=== PATIENT | male | born 1960 | race Caucasian/White ===

== ENCOUNTER 2018-12-18 08:51 | Inpatient (IN) | payer OTHER ==
[2018-12-18] VITALS (14 sets, daily range): BP systolic 120–135; BP diastolic 70–90
[~2018-12-18] VITALS: Ht 172.7 cm; Wt 80.0 kg
[2018-12-18 09:11] LABS: ABSOLUTE BASOPHILS 0.1 thou/uL (0.0-0.2); ABSOLUTE EOSINOPHILS 0.2 thou/uL (0.0-0.7); ABSOLUTE LYMPHOCYTES 2.8 thou/uL (0.8-5.3); ABSOLUTE MONOCYTES 0.6 thou/uL (0.0-1.2); ABSOLUTE NEUTROPHILS 3.6 thou/uL (1.6-8.1); BASOPHILS 0.9 %; EOSINOPHILS 2.6 %; HEMATOCRIT 46.4 % (42.0-52.0); HEMOGLOBIN 15.9 gm/dL (14.0-18.0); LYMPHOCYTES 38.3 %; MCH 31.4 pg (26.0-34.0); MCHC 34.2 g/dL (28.0-37.0); MCV 91.7 fL (80.0-100.0); MPV 8.6 fl. (7.2-11.1); NUCLEATED RBCS 0 /100WBC; PLATELET COUNT* 199 thou/uL (150-400); POLYS 50.2 %; RBC 5.06 mil/uL (4.50-6.00); RDW-CV 13.2 % (10.5-14.5); WBC 7.2 thou/uL (4.0-11.0)
[2018-12-18 09:22] LABS: ANION GAP 12 mmol/L (7-16); APTT 24.5 Seconds (25.0-31.3); BUN 18 mg/dL (7-18); CALCIUM 8.8 mg/dL (8.5-10.1); CHLORIDE 102 mmol/L (98-107); CO2 21 mmol/L (21-32); CREATININE 1.1 mg/dL (0.6-1.3); GLUCOSE 354 mg/dL (70-99); POTASSIUM 3.9 mmol/L (3.5-5.1); PROTIME 10.6 Seconds (9.20-11.50); SODIUM 135 mmol/L (136-145)
[2018-12-18 09:31] LABS: ALBUMIN 3.5 g/dL (3.4-5.0); ALKALINE PHOSPHATASE 66 U/L (46-116); CHOLESTEROL 232 mg/dL (<200); HDL CHOLESTEROL 48 mg/dL (>40); LDL CHOLESTEROL 149 mg/dL (<100); MAGNESIUM 1.7 mg/dL (1.8-2.4); SERUM ASSESSMENT Clear; SGOT 25 U/L (15-37); SGPT 36 U/L (30-65); TC:HDL 4.8 Ratio (Not establshd); TOTAL BILIRUBIN 0.7 mg/dL (<0.1-1.0); TOTAL PROTEIN 6.4 g/dL (6.4-8.2); TRIGLYCERIDE 179 mg/dL (<150); TROPONIN-I LEVEL 0.07 ng/mL (<0.06); VLDL 36 mg/dL (<40)
--- NOTE | 2018-12-18 14:13 | 2DMMODE ---
[place] [address] 2 D/M-MODE ECHOCARDIOGRAM Name: SASCHA GANN Room: [address] IN [facility]#: [id number] Admission: 12/18/18 Attend Phys: Alex Barrios Discharge: Date of : 56 Date of Service: 12/18/18 1413 Report #: [id number] THIS REPORT FOR: //name// APPROVED REPORT Study performed: 12/18/2018 13:19:26 EXAM: Comprehensive 2D, Doppler, and color-flow Echocardiogram Patient Location: In-Patient Room #: 006 Status: routine BSA: 1.94 HR: 70 bpm BP: 135/90 mmHg Rhythm: NSR Other Information Study Quality: Good Indications Acute SC CAD 2D Dimensions IVSd: 9.53 (7-11mm) LVOT Diam: 20.43 (18-24mm) LVDd: 57.31 mm PWd: 12.26 (7-11mm) Ascending Ao: 31.71 (22-36mm) LVDs: 50.15 (25-40mm) Aortic Root: 32.61 mm Volumes Left Atrial Volume (Systole) LA ESV Index: 34.90 mL/m2 Aortic Valve AoV Peak Simone.: 1.06 m/s AO Peak Gr.: 4.49 mmHg LVOT Max P.46 mmHg AO Mean Gr.: 2.86 mmHg LVOT Mean P.67 mmHg LVOT Max V: 0.60 m/s AO V2 VTI: 21.12 cm LVOT Mean V: 0.37 m/s TIFFANI (VTI): 1.75 cm2 LVOT V1 VTI: 11.24 cm Mitral Valve E/A Ratio: 5.19 MV Decel. Time: 113.96 [place] [address] 2 D/M-MODE ECHOCARDIOGRAM Name: SASCHA GANN Room: [address] M.R.#: [id number] Admission: 12/18/18 Attend Phys: Alex Barrios Discharge: Date of : 56 Date of Service: 12/18/18 1413 Report #: [id number] MV E Max Simone.: 1.13 m/s MV PHT: 33.05 ms MVA (PHT): 6.66 cm2 TDI E/Lateral E': 14.13 E/Medial E': 28.25 Medial E' Simone.: 0.04 m/s Lateral E' Simone.: 0.08 m/s Pulmonary Valve PV Peak Simone.: 0.57 m/s PV Peak Gr.: 1.32 mmHg Tricuspid Valve RAP Estimate: 5.00 mmHg TR Peak Gr.: 41.96 mmHg RVSP: 47.00 mmHg PA Pressure: 47.00 mmHg Left Ventricle The left ventricle is normal size. There is global hypokinesis with akinesis of the distal septum and anteroapical segments. There is normal left ventricular wall thickness. Left ventricular systolic function is severely decreased. LVEF is 20-25%. Grade IV - fixed restrictive diastolic dysfunction. Right Ventricle The right ventricle is normal size. The right ventricular systolic function is normal. Atria Left atrium is at the upper limits of normal. The right atrium size is normal. Aortic Valve Mild aortic valve sclerosis. No aortic regurgitation is present. No hemodynamically significant valvular aortic stenosis. Mitral Valve Mild mitral annular calcification. Mild mitral regurgitation. No evidence of mitral valve stenosis. Tricuspid Valve The tricuspid valve is normal in structure. Mild tricuspid regurgitation. Moderate pulmonary hypertension. Pulmonic Valve The pulmonary valve is normal in structure. [place] [address] 2 D/M-MODE ECHOCARDIOGRAM Name: AZEEMSASCHA Room: [address]#: [id number] Admission: 12/18/18 Attend Phys: Alex Barrios Discharge: Date of : 56 Date of Service: 12/18/18 1413 Report #: [id number] valvular regurgitation. Great Vessels The aortic root is normal in size. IVC is normal in size and collapses >50% with inspiration. Pericardium There is no pericardial effusion. <Conclusion> The left ventricle is normal size. There is normal left ventricular wall thickness. Left ventricular systolic function is severely decreased. LVEF is 20-25%. The right ventricle is normal size. Left atrium is at the upper limits of normal. Mild aortic valve sclerosis. No aortic regurgitation is present. No hemodynamically significant valvular aortic stenosis. Mild mitral annular calcification. Mild mitral regurgitation. The tricuspid valve is normal in structure. Mild tricuspid regurgitation. Moderate pulmonary hypertension. IVC is normal in size and collapses >50% with inspiration. There is no pericardial effusion. There is global hypokinesis with akinesis of the distal septum and anteroapical segments. <ELECTRONICALLY SIGNED> By: Rob Brown MD, FACC 12/18/18 1413 141 141 Rob Brown MD, FACC /INF
--- NOTE | 2018-12-18 16:10 | EKG ---
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1960 Requested By: Jayesh Alva Order Number: [id number] MD: Rob Brown Measurements Intervals [place] Rate: 77 P: 44 NC: 187 QRS: -59 QRSD: 101 T: 176 QT: 428 QTc: 485 Interpretive Statements Sinus rhythm Left atrial enlargement Left ventricular hypertrophy Inferior infarct, old Anterior Q waves, possibly due to LVH No previous ECG available for comparison Electronically Signed On 12-18-2018 16:10:14 CDT by Rob Brown [email or web address] <ELECTRONICALLY SIGNED> By: Rob Brown MD, [facility] 12/18/18 1610 0855 [id number] Rob Brown MD, [facility] /EPI
--- NOTE | 2018-12-19 11:20 | CARD ---
[address] [address] CARDIAC CATH REPORT Name: SASCHA GANN Room: [address] M.R.#: [id number] Admission: 12/18/18 Attend Phys: Rob Brown MD, Discharge: 12/18/18 Date of : 56 Report #: [id number] THIS REPORT FOR: //name// APPROVED REPORT Study performed: 12/18/2018 08:40:58 Patient Details Patient Status: ED Room #: Event Personnel Dr. Brown Procedures Performed Left heart catheterization left ventriculography and selective coronary angiography Indication Abnormal ECG, Chest pain Risk Factors Hypercholesterolemia Previous Procedures/Diagnoses Previous PCI Admission/Lab Medications/Medications given during procedure Aspirin, Heparin Unfract. Procedure Narrative The patient was brought emergently to the Cardiac Catheterization Laboratory and was prepped and draped in a sterile manner. The right femoral was infiltrated with 2% Lidocaine subcutaneous anesthesia. A [place] 6 FR sheath was inserted into the right femoral artery. Coronary angiography was performed using coronary diagnostic catheters. The left coronary system was accessed and visualized with a JL4 catheter. The left ventricle was accessed and visualized with a Straight PIG catheter. Left ventricular/Aortic Valve gradient assessed via catheter pullback. Left ventriculogram was performed in PURDY projection. Pre-demployment femoral angiogram was performed . Closure device was deployed with a Fr Angioseal STS 6Fr. The patient tolerated the procedure well and there were no complications associated with the procedure. Dose: 1034 [place] [address] CARDIAC CATH REPORT Name: SASCHA GANN Room: [address] M.R.#: [id number] Admission: 12/18/18 Attend Phys: Rob Brown MD, Discharge: 12/18/18 Date of : 56 Report #: [id number] Contrast Type and Amount: Visipaque 175 ml Diagnostic Cath Left Main 40% distal narrowing LAD 100% occlusion after the takeoff of the first septal show design supervisor and first diagonal, the first diagonal demonstrated 90% ostial and 80% tubular proximal stenosis; there was faint antegrade filling of a skeleton of the distal LAD system Circumflex 80% narrowing of the proximal portion of the nondominant circumflex Right Coronary The right coronary ostium was not defined,. The vessel was defined to be totally occluded on retrograde filling via adkj-tu-usxdn collaterals with total occlusion being in its midportion Left Ventriculography The left ventricle is severely dilated in size with contractility. The left ventricular ejection fraction is estimated to be 25%. Left ventricular wall motion abnormalities are present. There is severe reduction in global left ventricular systolic function with anterior and apical akinesis Hemodynamics The aortic pressure is 129/75 mmHg with a mean of 81 mmHg. The left ventricular pressure is 126/20 mmHg with a mean of mmHg. The left ventricular end diastolic pressure is 38 mmHg. There was no gradient across the aortic valve upon pullback. Conclusion #1 severe coronary artery disease characterized by the following: A 40% distal left main coronary artery narrowing B1 100% LAD occlusion after the takeoff of the first septal show design supervisor and first diagonal with 90% ostial and 80% proximal first diagonal stenosis; there was faint antegrade filling of a skeleton of the distal LAD system C 80% narrowing of the proximal portion of the nondominant circumflex D dominant right coronary artery which is totally occluded in its midportion defined via retrograde filling from spxc-nn-atwba collaterals #2 severe reduction in global left ventricular systolic function, [place] [address] CARDIAC CATH REPORT Name: SASCHA GANN Room: [address] .R.#: [id number] Admission: 12/18/18 Attend Phys: Rob Brown MD, Discharge: 12/18/18 Date of : 56 Report #: [id number] estimate ejection fraction 25% with anterior and apical akinesis #3 severe elevation of left ventricular end-diastolic pressure at rest Recommendations Cardiac Risk Reduction Program CABG Medications Administered Aspirin (any) Diagnostic Cath Approved by: Rob Brown MD Date/Time: 12/19/2018 11:10:53 <ELECTRONICALLY SIGNED> By: Rob Brown MD, [facility] 12/19/18 1119 1119 1119Joluzma Brown MD, FACC /INF
--- NOTE | 2018-12-21 12:36 | H ---
[address] [address] HISTORY AND PHYSICAL Name: SASCHA GANN Room: [address] IN M.R.#: [id number] Admission: 12/18/18 Attend Phys: Rob Brown MD, Discharge: 12/18/18 Date of : 56 Report #: [id number] THIS REPORT FOR: //name// CC: [facility] physician/PCP Rob Brown DATE OF SERVICE: 12/18/2018 LOCATION: The patient is in ICU 6. HISTORY OF PRESENT ILLNESS: The patient is a pleasant 58-year-old male with a history of coronary artery disease, status post remote stenting approximately 15 years ago. He does not have records of that procedure. This morning, after a bowel movement, he collapsed on the floor and was observed to be blue and purplish by his . She did commence CPR, but noted he began to arouse prior to their arrival. They did mild resuscitative efforts, but the patient was awakening as the paramedics arrived and they transported him to [facility] Emergency Room, where he was noted to be totally alert and responsive, but hypotensive. He received volume and systemic pressure dino to approximately 100 [address]. [address] revealed nonspecific ST changes with an intraventricular conduction delay. There was no evidence for acute ST-segment elevation myocardial infarction. In the context of what appeared to be an acute coronary syndrome with an chl-vq-azqresml cardiac arrest, I recommended proceeding with cardiac catheterization. That was undertaken and it revealed total LAD occlusion after the first diagonal and first septal brakeshoe repairer with 90% first diagonal narrowing, 80% tubular proximal circumflex narrowing and total occlusion of the right coronary artery with xrzw-tu-npjii collaterals filling the distal right. Left ventricular function was severely impaired with an ejection fraction of 25% with anterolateral and apical akinesis. End-diastolic pressure was 38 mmHg. The patient was given IV diuretics. After reviewing the films, I felt the indicated approach was urgent coronary artery bypass grafting and this was discussed with the patient and family. He received IV Lasix and was transferred to the Intensive Care Unit. PAST MEDICAL HISTORY: Remarkable for borderline diabetes. He has a history of coronary artery disease, status post remote stenting. He denies cigarette smoking, known hypercholesterolemia [place] [address] HISTORY AND PHYSICAL Name: AZEEMSASCHA Room: [address]#: [id number] Admission: 12/18/18 Attend Phys: Rob Brown MD, Discharge: 12/18/18 Date of : 56 Report #: [id number] SOCIAL HISTORY: The patient is . He is a nonsmoker. REVIEW OF SYSTEMS: Not obtained in the acute setting. PHYSICAL EXAMINATION: GENERAL: Demonstrated an acutely distressed middle-aged male. VITAL SIGNS: Blood pressure initially 80/50, subsequently 100/60 after volume resuscitation, pulse rate was 74 and respirations 18 per minute. NECK: Jugular venous pressure was normal. Carotids were 1+. CHEST EXAMINATION: Clear. CARDIAC EXAMINATION: Revealed normal first and second heart sounds, with a question of summation gallop. ABDOMEN: Soft and nontender. EXTREMITIES: Without edema with intact femoral, pedal and radial pulses. LABORATORY DATA: Electrocardiogram revealed a sinus rhythm with left axis deviation, compatible with left anterior hemiblock, probable old inferior and possible anteroseptal scars with interventricular conduction delay and nonspecific ST-T alterations were noted. Renal function parameters were normal. Glucose was greater than 300. IMPRESSION: 1. Ihm-yj-ujnxxlod cardiac arrest. 2. Coronary artery disease, status post remote stenting. 3. Ischemic cardiomyopathy and catheterization with severe triple-vessel coronary artery disease. 4. Diabetes (untreated at this point). RECOMMENDATIONS: 1. Diabetic control. 2. Diuresis in the context of the marked elevation of left ventricular end-diastolic pressure. 3. I would recommend emergent transfer for coronary artery bypass grafting and placing of an ICD, as I suspect the initiating event today was an aik-qa-qgjtshzp arrhythmic arrest. This was discussed in detail with the patient who was awake and alert at this point and his family. Critical care time is 35 minutes, from 12:15 to 12:50 on 12/18/2018. <ELECTRONICALLY SIGNED> By: Rob Brown MD, FACC 12/21/18 1236 1249 1320Joluzma Brown MD, FACC /nt
--- NOTE | 2018-12-21 12:37 | D ---
[address] [address] DISCHARGE SUMMARY Name: SASCHA GANN Room: [address] IN M.R.#: [id number] Admission: 12/18/18 Attend Phys: Rbo Brown MD, Discharge: 12/18/18 Date of : 56 Report #: [id number] THIS REPORT FOR: //name// CC: Kar Do MD [facility] physician/PCP Rob Brown DATE OF SERVICE: 12/18/2018 FINAL DISCHARGE DIAGNOSES: 1. Out of hospital cardiac arrest. 2. Severe coronary artery disease. 3. Ischemic cardiomyopathy. 4. Diabetes mellitus. 5. Status post remote percutaneous transluminal coronary angioplasty with stenting. PROCEDURES: 12/18/2018 - left heart catheterization, left ventriculography and selective coronary arteriography. HOSPITAL COURSE: The patient is a very pleasant 58-year-old male who got up from the commode and fell to the ground. He was unconscious for a brief period of time where his attempted to move him and he was transferred totally unresponsive. By the time paramedics arrived, he began to respond to them and no full CPR was performed. His blood pressure was low normal, but he did respond and was alert. He was transferred emergently to [facility] Emergency Room. Electrocardiogram revealed a nonspecific interventricular conduction delay with nonspecific inferior and right precordial ST-T abnormalities without ST segment elevation myocardial infarction. In the context of known coronary artery disease and the out of hospital arrest, he was taken to the catheterization suite. Acute cardiac catheterization revealed severe multivessel coronary artery disease with 40% distal left main coronary artery narrowing, total LAD occlusion after first septal glue cook and first diagonal with 90% ostial stenosis and 80% tubular narrowing of the prominent first diagonal with 80% tubular narrowing of the proximal portion of the nondominant circumflex and total right coronary occlusion with left to right collaterals filling the distal right coronary artery. Left ventricular function was severely impaired with an estimated ejection fraction of 25% with anterolateral and apical akinesis with a proximal septum and inferior wall moving suboptimally. There was no significant mitral regurgitation. The issues were discussed in detail with the patient and family and given the presentation and current coronary anatomy and LV function, [place] [address] DISCHARGE SUMMARY Name: SASCHA GANN Room: [address] IN [facility].#: [id number] Admission: 12/18/18 Attend Phys: Rob Brown MD, Discharge: 12/18/18 Date of : 56 Report #: [id number] coronary artery bypass grafting with placement of an ICD. This was discussed with Dr. Do at after view of the family's wishes to transfer him there. The patient received parenteral diuresis giving diastolic pressure of 40 and magnesium supplementation. He was stable in the ICU. He was transferred to in the context of the aforementioned events as outlined above. Thus, the patient was transferred to for coronary artery bypass grafting and placing of an ICD in the context of out of hospital cardiac arrest and a severe cardiomyopathy with severe multivessel coronary artery disease as iterated above. <ELECTRONICALLY SIGNED> By: Rob Brown MD, FACC 12/21/18 1237 1314 1814Rob Brown MD, FAC /nt
== END 2018-12-18 15:10 | disposition short-term general hospital (02) | DRG 280 ==
LOC: M.CL 08:51 → M.ERS 08:51 → M.TBA-CV 09:17 → M.ICU 09:17
PROVIDERS: Emergency Medicine Emergency Medical Services; ADMIT Internal Medicine
PROC: 4A023N7 Measurement of Cardiac Sampling and Pressure, Left Heart, Percutaneous Approach (ICD-10-PCS; principal; 2018-12-18)
PROC: B2111ZZ Fluoroscopy of Multiple Coronary Arteries using Low Osmolar Contrast (ICD-10-PCS; principal; 2018-12-18)
PROC: B41F1ZZ Fluoroscopy of Right Lower Extremity Arteries using Low Osmolar Contrast (ICD-10-PCS; principal; 2018-12-18)
PROC: B2151ZZ Fluoroscopy of Left Heart using Low Osmolar Contrast (ICD-10-PCS; principal; 2018-12-18)
DX: I21.3 ST elevation (STEMI) myocardial infarction of unspecified site (principal); I46.9 Cardiac arrest, cause unspecified; I25.10 Atherosclerotic heart disease of native coronary artery without angina pectoris; I95.9 Hypotension, unspecified; I25.5 Ischemic cardiomyopathy; E11.9 Type 2 diabetes mellitus without complications; F12.10 Cannabis abuse, uncomplicated; Z72.89 Other problems related to lifestyle

== ENCOUNTER 2019-02-17 12:36 | Emergency (ER) | payer OTHER ==
[~2019-02-17] VITALS: Ht 172.7 cm; Wt 73.0 kg
[2019-02-17 13:06] LABS: ABSOLUTE EOSINOPHILS 0.2 thou/uL (0.0-0.7); ABSOLUTE LYMPHOCYTES 1.7 thou/uL (0.8-5.3); ABSOLUTE MONOCYTES 0.5 thou/uL (0.0-1.2); ABSOLUTE NEUTROPHILS 3.8 thou/uL (1.6-8.1); BASOPHILS 0.7 %; EOSINOPHILS 3.4 %; HEMATOCRIT 42.3 % (42.0-52.0); HEMOGLOBIN 14.3 gm/dL (14.0-18.0); LYMPHOCYTES 27.7 %; MCH 30.2 pg (26.0-34.0); MCHC 33.8 g/dL (28.0-37.0); MCV 89.3 fL (80.0-100.0); MONOCYTES 7.6 %; MPV 7.4 fl. (7.2-11.1); NUCLEATED RBCS 0 /100WBC; PLATELET COUNT* 195 thou/uL (150-400); POLYS 60.6 %; RBC 4.74 mil/uL (4.50-6.00); RDW-CV 12.8 % (10.5-14.5); WBC 6.2 thou/uL (4.0-11.0)
[2019-02-17 13:22] LABS: PROTIME 10.7 Seconds (9.20-11.50)
[2019-02-17 13:24] LABS: ANION GAP 15 mmol/L (7-16); BUN 21 mg/dL (7-18); CALCIUM 9.1 mg/dL (8.5-10.1); CHLORIDE 104 mmol/L (98-107); CO2 23 mmol/L (21-32); GLUCOSE 175 mg/dL (70-99); POTASSIUM 3.8 mmol/L (3.5-5.1); SODIUM 142 mmol/L (136-145)
[2019-02-17 13:34] LABS: ALBUMIN 3.7 g/dL (3.4-5.0); ALKALINE PHOSPHATASE 69 U/L (46-116); NT-PRO BRAIN NAT PEPTIDE 1734 pg/mL (<300); SGOT 26 U/L (15-37); SGPT 46 U/L (30-65); TOTAL BILIRUBIN 0.6 mg/dL (<0.1-1.0); TOTAL PROTEIN 6.7 g/dL (6.4-8.2); TROPONIN-I LEVEL <0.06 ng/mL (<0.06)
[2019-02-17] MEDS ORDERED: ELIQUIS5 MG PO (13:35)
[2019-02-17] MEDS ORDERED: ASPIR 8181 MG PO (13:36)
[2019-02-17] MEDS ORDERED: PLAVIX 75 MG TA75 M1 PO (13:36)
[2019-02-17] MEDS ORDERED: JARDIANCE25 MG (13:37)
[2019-02-17] MEDS ORDERED: LISINOPRIL2.5 MG PO (13:37)
[2019-02-17] MEDS ORDERED: SPIRONOLACTONE25 M1 PO (13:38)
[2019-02-17] MEDS ORDERED: TOPROL XL25 MG PO (13:38)
[2019-02-17] MEDS ORDERED: CRESTOR20 MG PO (13:38)
[2019-02-17] MEDS ORDERED: PROTONIX40 M1 PO (13:38)
[2019-02-17 15:55] VITALS: BP 118/68
--- NOTE | 2019-02-18 12:32 | EKG ---
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1960 Requested By: Liyah Bradley Order Number: [id number] MD: Iron Harris Measurements Intervals [place] Rate: 187 P: -15 IA: 102 QRS: -95 QRSD: 130 T: 92 QT: 292 QTc: 515 Interpretive Statements Wide-QRS tachycardia Right bundle branch block Compared to ECG 12/18/2018 08:55:28 Right bundle-branch block now present Sinus rhythm no longer present Electronically Signed On 02-18-2019 12:32:08 CDT by Iron Harris [email or web address] <ELECTRONICALLY SIGNED> By: Iron Harris MD, [facility] 02/18/19 1232 1243 1243 Iron Harris MD, [facility] /EPI
--- NOTE | 2019-02-18 15:47 | EKG ---
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 <ELECTRONICALLY SIGNED> By: Iron Harris MD, FACC 02/18/19 1547 1250 1250 Iron Harris MD, FAC /EPI
== END 2019-02-17 15:25 | disposition short-term general hospital (02) ==
LOC: M.ERS 12:36
PROVIDERS: Personal Emergency Response Attendant
DX: I47.2 Ventricular tachycardia (principal); I25.10 Atherosclerotic heart disease of native coronary artery without angina pectoris; R42 Dizziness and giddiness